=== PATIENT | male | born 1980 | race Caucasian/White ===

== ENCOUNTER → 2022-12-01 | Emergency (ER) | payer SELFPAY ==
[~2022-12-01] VITALS: Ht 177.8 cm; Wt 77.0 kg
[~2022-12-01] MED LIST: AMOX-117 PO; IBUP-1985 PO; TETanus/Pertussis (Acell)/Diphther VAC/PF (Tdap-Adult) 0.5ml syringe IMVAC ONE; amox tr/potassium clavulanate 875/125mg TAB PO ONE; ibuprofen tablet 400 MG TABLET PO ONE
[2022-12-01 16:27] VITALS: BP 131/83
--- NOTE | 2022-12-01 17:28 | NUR ---
PT REQUESTED RABIES VACCINE. MD ESCOBAR STATES THAT RABIES VACCINE NOT INDICATED AT THIS TIME. PT NOTIFIED OF MD RESPONSE. PT ELOPED.
== END | disposition home or self-care (01) ==
LOC: ER 16:04
DX: S61.451A Open bite of right hand, initial encounter (principal); W54.0XXA Bitten by dog, initial encounter; Y93.9 Activity, unspecified; Y92.89 Other specified places as the place of occurrence of the external cause; Y99.8 Other external cause status
CPT/HCPCS: 99283; A6258; A6449